=== PATIENT | male | born 1975 ===

== ENCOUNTER 2018-12-24 16:25 | Emergency (ER) | payer SELFPAY ==
[2018-12-24 16:52] VITALS: BP 143/84; PULSE 78; RESP 18; TEMP 98.1; O2SAT 98
--- NOTE | 2018-12-24 17:52 | RAD ---
Date of service: 12/24/2018 HISTORY: Cough COMPARISON: No prior. TECHNIQUE: Chest PA and lateral FINDINGS: LINES AND TUBES: None. LUNG AND PLEURA: The lungs are well inflated and clear. No pleural effusion or pneumothorax. HEART AND MEDIASTINUM: The heart is not enlarged. No aortic atherosclerotic calcifications present. The hilar and mediastinal contours are within normal limits. SKELETAL STRUCTURES: The bony structures are within normal limits for the patient's age. VISUALIZED UPPER ABDOMEN: Normal. OTHER FINDINGS: None. IMPRESSION: No active pulmonary disease.
--- NOTE | 2018-12-24 18:35 | C.PDOC ---
History Of Present Illness 43 year old male comes in to ED complaining that hes been having cough for the past week, associated with sore throat. Patient reports that now he feels that his throat is closing up and his cough has worsened, which prompted the visit. States hes been taking over the counter medications with no relief. Denies history of previous symptoms in the past, fever, itching, wheezing, chest pain, or SOB. Time Seen by Provider: 12/24/18 17:01 Chief Complaint (Nursing): Shortness Of Breath History Per: Patient History/Exam Limitations: no limitations Onset/Duration Of Symptoms: Days Current Symptoms Are (Timing): Still Present Past Medical History Reviewed: Historical Data, Nursing Documentation, Vital Signs Vital Signs: Last Vital Signs Temp 98.1 F 12/24/18 16:48 Pulse 78 12/24/18 16:48 Resp 18 12/24/18 16:48 BP 143/84 12/24/18 16:48 Pulse Ox 98 12/24/18 16:48 Family History: States: No Known Family Hx - Social History Hx Alcohol Use: Yes Hx Substance Use: No - Immunization History Hx Tetanus Toxoid Vaccination: No Hx Influenza Vaccination: No Hx Pneumococcal Vaccination: No Review Of Systems Except As Marked, All Systems Reviewed And Found Negative. Constitutional: Negative for: Fever, Chills ENT: Positive for: Throat Pain (Sore throat) Cardiovascular: Negative for: Chest Pain Respiratory: Positive for: Cough. Negative for: Shortness of Breath, Wheezing Physical Exam - Physical Exam Appears: Non-toxic, No Acute Distress Skin: Warm, Dry, No Rash Head: Atraumatic, Normacephalic Eye(s): bilateral: Normal Inspection Ear(s): Bilateral: Normal Oral Mucosa: Moist Throat: Normal, No Erythema, No Exudate Neck: Supple Lymphatic: Normal Exam Chest: Symmetrical, No Tenderness Cardiovascular: Rhythm Regular, No Friction Rub, No Murmur Respiratory: Normal Breath Sounds, No Rales, No Rhonchi, No Wheezing Gastrointestinal/Abdominal: Soft, No Tenderness Extremity: Normal ROM, No Swelling Extremity: Bilateral: Atraumatic, Normal Color And Temperature, Normal ROM Neurological/Psych: Oriented x3, Normal Speech Gait: Steady ED Course And Treatment O2 Sat by Pulse Oximetry: 98 (RA) Pulse Ox Interpretation: Normal - Other Rad CXR X-Ray: Read By Radiologist Interpretation: FINDINGS: LINES AND TUBES: None. LUNG AND PLEURA: The lungs are well inflated and clear. No pleural effusion or pneumothorax. HEART AND MEDIASTINUM: The heart is not enlarged. No aortic atherosclerotic calcifications present. The hilar and mediastinal contours are within normal limits. SKELETAL STRUCTURES: The bony structures are within normal limits for the patient's age. VISUALIZED UPPER ABDOMEN: Normal. OTHER FINDINGS: None. IMPRESSION: No active pulmonary disease. Medical Decision Making Medical Decision Making: Plan: --Chest XR --Zithromax 500 mg PO --Prednisone 40 mg PO Disposition - Disposition Referrals: [facility] [Outside] Disposition: HOME/ ROUTINE Disposition Time: 18:30 Condition: GOOD Additional Instructions: Follow up with the medical doctor within 1-2 days. Return if worsened. Prescriptions: Azithromycin [Zithromax] 250 mg PO DAILY #4 tab predniSONE [Prednisone] 20 mg PO BID #10 tab Instructions: Sore Throat, Adult (DC) Forms: [employer] (Hungarian) - Clinical Impression Clinical Impression: Bronchitis, Pharyngitis - PA / TECHNICAL COORDINATOR / Resident Statement MD/DO has reviewed & agrees with the documentation as recorded. - Scribe Statement The provider has reviewed the documentation as recorded by the Scribe Whitney Mcfarland All medical record entries made by the Karenibmaye were at my direction and personally dictated by me. I have reviewed the chart and agree that the record accurately reflects my personal performance of the history, physical exam, medical decision making, and the department course for this patient. I have also personally directed, reviewed, and agree with the discharge instructions and disposition.
== END 2018-12-24 18:43 | disposition home or self-care (01) ==
LOC: C.ER 16:25
DX: J40 Bronchitis, not specified as acute or chronic (principal); J02.9 Acute pharyngitis, unspecified

== ENCOUNTER 2018-12-25 21:39 | Emergency (ER) | payer SELFPAY ==
[2018-12-25 21:53] VITALS: BP 138/85; PULSE 98; RESP 20; TEMP 98.3; O2SAT 98
[2018-12-25] MEDS ORDERED: Albuterol 0.083% Inhal Sol (2.5 mg/3 mL) UD ONE ×2 (22:12→22:24)
--- NOTE | 2018-12-25 22:32 | C.PDOC ---
History Of Present Illness 43 year old male presents with SOB, chest congestion, and chest tightness for one day. He was seen here yesterday, diagnosed with bronchitis, given antibiotics and prednisone, however, reports difficulty breathing which prompted visit. Denies fever or chills. Time Seen by Provider: 12/25/18 22:01 Chief Complaint (Nursing): Cough, Cold, Congestion History Per: Patient History/Exam Limitations: no limitations Onset/Duration Of Symptoms: Days (1) Current Symptoms Are (Timing): Still Present Location Of Pain: None Sick Contacts (Context): None Associated Symptoms: Other (SOB, chest congestion, chest tightness). denies: Fever, Chills Ear Symptoms: Bilateral: None Recent travel outside of the [place]: No Past Medical History Reviewed: Historical Data, Nursing Documentation, Vital Signs Vital Signs: Last Vital Signs Temp 98.3 F 12/25/18 21:49 Pulse 98 H 12/25/18 21:49 Resp 20 12/25/18 21:49 BP 138/85 12/25/18 21:49 Pulse Ox 98 12/25/18 21:49 - Medical History PMH: Bronchitis Family History: States: Unknown Family Hx - Social History Hx Alcohol Use: No Hx Substance Use: No - Immunization History Hx Tetanus Toxoid Vaccination: No Hx Influenza Vaccination: No Hx Pneumococcal Vaccination: No Review Of Systems Constitutional: Negative for: Fever, Chills ENT: Negative for: Nose Discharge, Nose Congestion Cardiovascular: Negative for: Chest Pain, Palpitations Respiratory: Positive for: Shortness of Breath, Other (Chest congestion, chest tightness) Gastrointestinal: Negative for: Nausea, Vomiting Physical Exam - Physical Exam Appears: Non-toxic Skin: Normal Color, Warm, Dry Head: Atraumatic, Normacephalic Eye(s): bilateral: Normal Inspection Ear(s): Bilateral: Normal Nose: Normal Oral Mucosa: Moist Throat: Normal, No Erythema, No Exudate Chest: Symmetrical, No Tenderness Cardiovascular: Rhythm Regular Respiratory: Other (Decreased air entry, decreased breath sounds, congestion, rhonchi) Neurological/Psych: Oriented x3, Normal Speech ED Course And Treatment O2 Sat by Pulse Oximetry: 98 (Room air) Pulse Ox Interpretation: Normal Progress Note: Albuterol nebs x2, decadron IM, and benadryl po administered. Patient is resting comfortably in no acute respiratory distress with clear breath sounds, vitals are stable, will discharge home with Rx and instructions to follow up with PMD. Disposition Counseled Patient/Family Regarding: Diagnosis, Need For Followup, Rx Given - Disposition Referrals: [facility] [Outside] Disposition: HOME/ ROUTINE Disposition Time: 23:00 Condition: STABLE Additional Instructions: PLEASE FOLLOW UP WITH PMD OR IN CLINIC INCREASE FLUIDS TAKE MEDICATIONS DIRECTED RETURN TO ER IF WORSE Prescriptions: Albuterol HFA [Ventolin HFA 90 mcg/actuation (8 g)] 2 puff IH [id number] #1 inhaler Benzonatate [Tessalon Perles] 200 mg PO TID #14 sgl Cetirizine HCl [Zyrtec] 10 mg PO DAILY #14 capsule Instructions: Acute Bronchitis, Adult (DC) Forms: [employer] (Tajik) Print Language: PUERTO RICAN - Clinical Impression Clinical Impression: Bronchitis, Bronchospasm - PA / APPLIER / Resident Statement MD/DO has reviewed & agrees with the documentation as recorded. - Scribe Statement The provider has reviewed the documentation as recorded by the Scribmaye Hutchison All medical record entries made by the Karenibmaye were at my direction and personally dictated by me. I have reviewed the chart and agree that the record accurately reflects my personal performance of the history, physical exam, medical decision making, and the department course for this patient. I have also personally directed, reviewed, and agree with the discharge instructions and disposition.
[2018-12-25] MEDS ORDERED: Dexamethasone 4 mg/1 ml IM STA (22:34)
[2018-12-25] MEDS ORDERED: Albuterol 0.083% Inhal Sol (2.5 mg/3 mL) UD IH STA (22:57)
== END 2018-12-25 23:11 | disposition home or self-care (01) ==
LOC: C.ER 21:39
DX: J40 Bronchitis, not specified as acute or chronic (principal); J98.01 Acute bronchospasm
CPT/HCPCS: 96372; 99283; J1100

== ENCOUNTER 2019-02-01 14:41 | Outpatient (CLI) | payer SELFPAY | END 2019-02-01 14:42 | disposition home or self-care (01) | LOC: C.USIC 14:42 | DX: N50.9 Disorder of male genital organs, unspecified (principal) ==